=== PATIENT | female | born 1995 | race Caucasian/White ===

== ENCOUNTER 2017-06-15 11:21 | Emergency (ER) | payer MEDICAID, OTHER ==
[~2017-06-15] VITALS: Ht 160 cm; Wt 60.2 kg
[~2017-06-15 11:21] MED LIST: ALBUAER3 INH; PREN1CAP7 PO
[2017-06-15 11:31] VITALS: BP 112/67; PULSE 95; RESP 16; TEMP 98.5; O2SAT 100
[2017-06-15] MEDS ORDERED: ACETAMINOPHEN 325 MG TAB PO ONE (12:30)
--- NOTE | 2017-06-15 12:32 | PD ---
HPI Chief Complaint: Headache Time Seen by Provider: 12:19 Travel History International Travel<30 days: No Contact w/Intl Traveler<30days: No Traveled to known affect area: No History of Present Illness HPI This 21-year-old female says she's had congestion and some headache for a couple of days. She is currently . She had 1 previous and had a miscarriage about 2 years ago. She is currently 18 weeks. She's had some congestion in her chest for a couple of days he been short of breath. She has not been vomiting. Mother did have a cerebral aneurysm at the age of 35. [facility] Past Medical History Asthma: Yes Immunizations Current: Yes ?: : 1 Past Surgical History Ear Surgery: Yes (tubes) Social History Alcohol Use: No Tobacco Use: No Substance Use: No Allergies-Medications (Allergen,Severity, Reaction): Coded Allergies: No Known Allergies (Unverified Adverse Reaction, Unknown, 06/15/17) Reported Meds & Prescriptions Reported Meds & Active Scripts Active Citranatal [place] ( W/O Vit A W/ Fe Fumar) 27-1-260 Mg Cap 1 Cap PO DAILY Proair Hfa 8.5 GM Inh (Albuterol Sulfate) 90 Mcg/Act Aer 2 Puff INH Q4-6H PRN 108 mcg/actuation Review of Systems General / Constitutional: No: Fever, Chills Eyes: No: Diploplia, Drainage HENT: Positive: Sore Throat, Rhinitis, Earache Cardiovascular: No: Chest Pain or Discomfort, Palpitations Respiratory: Positive: Cough Gastrointestinal: No: Nausea, Vomiting Genitourinary: No: Vaginal Bleeding Skin: No Rash, No Itching Neurologic: Positive: Weakness Endocrine: No: Heat Intolerance, Cold Intolerance Hematologic/Lymphatic: No: Easy Bruising Physical Exam Narrative GENERAL: Well-developed female SKIN: Focused skin assessment warm/dry. HEAD: Atraumatic. Normocephalic. EYES: Pupils equal and round. No scleral icterus. No injection or drainage. ENT: There is nasal discharge. Mucous membranes pink and moist. NECK: Trachea midline. No JVD. CARDIOVASCULAR: Regular rate and rhythm. No murmur appreciated. RESPIRATORY: No accessory muscle use. Clear to auscultation. Breath sounds equal bilaterally. GASTROINTESTINAL: Abdomen soft, non-tender, nondistended. Hepatic and splenic margins not palpable. MUSCULOSKELETAL: No obvious deformities. No clubbing. No cyanosis. No edema. NEUROLOGICAL: Awake and alert. No obvious cranial nerve deficits. Motor grossly within normal limits. Normal speech. PSYCHIATRIC: Appropriate mood and affect; insight and judgment normal. Data Data Last Documented VS Vital Signs Date Time Temp Pulse Resp B/P (MAP) Pulse Ox O2 Delivery O2 Flow Rate FiO2 06/15/17 12:35 Room Air 06/15/17 11:31 98.5 95 16 112/67 (82) 100 Orders Orders Influenzae A/B Antigen (06/15/17 12:29) Acetaminophen (Tylenol) (06/15/17 12:30) MDM Medical Decision Making Medical Screen Exam Complete: Yes Emergency Medical Condition: Yes Medical Record Reviewed: Yes Differential Diagnosis Differential includes influenza, upper respiratory infection, sinus headache, Narrative Course Tests for influenza is negative. I will recommend the patient that she use Tylenol for headaches. Follow-up with Her own medical doctor Diagnosis Primary Impression: Upper respiratory infection Additional Instructions: Take Tylenol for headache Disposition: 01 DISCHARGE HOME Condition: Stable Casper Euceda MD Jun 15, 2017 12:31
[2017-06-15 13:15] VITALS: BP 108/64
== END 2017-06-15 13:21 | disposition home or self-care (01) ==
LOC: PHED 11:21
DX: O99.512 Diseases of the respiratory system complicating pregnancy, second trimester (principal); J06.9 Acute upper respiratory infection, unspecified; J45.909 Unspecified asthma, uncomplicated; Z3A.18 18 weeks gestation of pregnancy
CPT/HCPCS: 87804; 99283

== ENCOUNTER 2017-09-07 09:40 | Emergency (ER) | payer MEDICAID ==
[2017-09-07] MEDS ORDERED: ONDANSETRON ODT 4 MG TAB PO ONE (10:45)
[2017-09-07] MEDS ORDERED: ZOFR4TAB PO (10:46)
--- NOTE | 2017-09-07 10:47 | PD ---
HPI Travel History International Travel<30 Days: No Contact w/Intl Traveler<30Days: No History of Present Illness HPI 21-year-old female at 30/2 weeks presents to the ED with complaints of nausea/vomiting and cramps. She reports that she had 4 episodes of nonbloody, nonbilious vomiting and 2 episodes of loose stool. She states that she started having cramps in her lower abdomen during the middle of the night, which continue to the morning. She reports them as sporadic. She also endorses slight, thick, white vaginal discharge. She denies foul-smelling odor, dysuria , history of STDs. She states that her vaginal discharge was sampled at [facility] last Thursday, but she has not heard of the results. She denies vaginal bleeding, leakage of fluid, chest pain, shortness of breath. She endorses good movements. History Past Medical History Narrative Medical Asthma Obstetric History Obstetric History [id number] 1 miscarriage at 13 weeks Past Surgical History Surgical History: No Previous Surgery Family History Narrative Family History Mom had epilepsy and brain aneurysm at 35 COPD Social History Alcohol Use: No Tobacco Use: No Substance Abuse: No Allergies-Medications (Allergen,Severity, Reaction): Coded Allergies: No Known Allergies (Unverified Adverse Reaction, Unknown, 06/15/17) Home Meds Active Scripts Ondansetron (Zofran) 4 Mg Tab, 4 MG PO Q6HR Y for NAUSEA OR VOMITING, #30 TAB 0 Refills Prov:Mavis Judge MD 09/07/17 W/O Vit A W/ Fe Fumar (Citranatal [place]) 27-1-260 Mg Cap, 1 CAP PO DAILY for Nutritional Supplement, #30 CAP 3 Refills Prov:Sandrita Cuello CNM [employer] SUPER[employer]OR 05/07/17 Albuterol 8.5 GM Inh (Proair Hfa 8.5 GM Inh) 90 Mcg/Act Aer, 2 PUFF INH Q4-6H Y for SHORTNESS OF BREATH, #1 INHALER 1 Refill 108 mcg/actuation Prov:Sandrita Cuello CNM [employer] SO[employer] SERVICE SUPERVISOR 05/07/17 Review of Systems Except as stated in HPI: all other systems reviewed are Neg Physical Exam Narrative GENERAL: Well-nourished, well-developed patient. SKIN: Warm and dry. HEAD: Normocephalic and atraumatic. EYES: No scleral icterus. No injection or drainage. ENT: No nasal drainage noted. Mucous membranes pink. Airway patent. NECK: Supple, trachea midline. No JVD. CARDIOVASCULAR: Regular rate and rhythm without murmurs, gallops, or rubs. RESPIRATORY: Breath sounds equal bilaterally. No accessory muscle use. ABDOMEN/GI: Abdomen soft, non-tender, bowel sounds present, no rebound, no guarding GENITOURINARY: External Genitalia: intact and normal in appearance Cervix: Closed Dilatation: [-] Effacement: [-] Station: [-] Presentation: Posterior Membranes: Intact Uterine Contractions: Slight irritability on monitor FHT's: Category: 1 Baseline: 140 Reactive: Yes Variability: Moderate Decels: None EXTREMITIES: No cyanosis or edema. BACK: Nontender without obvious deformity. NEUROLOGICAL: Awake and alert. Motor and sensory grossly within normal limits. Five out of 5 muscle strength in all muscle groups. Normal speech. Data Data Vital Signs Reviewed: Yes Orders Orders Vital Signs (Adult) .ON ADMISSION (09/07/17 10:28) ^ Labor Status (09/07/17 10:28) ^ Non Stress Test (09/07/17 10:28) ^ Hydration (09/07/17 10:28) Ondansetron Odt (Zofran Odt) (09/07/17 10:45) MDM Plan 21-year-old female at 30/2 weeks presents to the ED for nausea and vomiting. #1 intrauterine Category 1 tracing reassuring #2 nausea and vomiting Slight irregular contractions seen on monitoring Most likely due to dehydration Urine dipstick negative Zofran given Oral rehydration Continue to follow up with NUCLEAR LICENSING ENGINEER for care Diagnosis Diagnosis: Primary Impression: Qualified Codes: Z3A.30 - 30 weeks gestation of Additional Impression: Nausea and vomiting during Disposition: DISCHARGE HOME Condition: Stable Scripts Ondansetron (Zofran) 4 Mg Tab 4 MG PO Q6HR Y for NAUSEA OR VOMITING, #30 TAB 0 Refills Prov: Mavis Judge MD R1 09/07/17 Patient Instructions: Nausea and Vomiting in (ED) Mavis Judge MD R1 Sep 07, 2017 10:47
== END 2017-09-07 11:30 | disposition home or self-care (01) ==
LOC: HOBED 09:40
DX: O21.9 Vomiting of pregnancy, unspecified (principal); O26.893 Other specified pregnancy related conditions, third trimester; R19.7 Diarrhea, unspecified; R10.30 Lower abdominal pain, unspecified; Z3A.30 30 weeks gestation of pregnancy
CPT/HCPCS: 99283

== ENCOUNTER 2017-11-02 12:00 | Emergency (ER) | payer MEDICAID ==
[~2017-11-02 12:00] MED LIST changes: +ZOFR4TAB PO
--- NOTE | 2017-11-02 12:45 | PD ---
HPI Chief Complaint Contractions Date Seen: Nov 02, 2017 Travel History International Travel<30 Days: No Contact w/Intl Traveler<30Days: No Known Affected Area: No History of Present Illness HPI Patient is a 21-year-old 010 at 38/2 weeks gestation, CLAUDIO of 11/14/2017 presents to the [facility] ED with multiple chief complaints including contractions, dizziness, hot flashes, pounding headache, and vaginal discharge. First, patient states that she has been having irregular contractions that an hour apart but never 10 minutes or less apart. She feels the contractions in her lower abdomen. Next, patient states that she is being having thick, non- foul-smelling, mucus-like discharge for the past 2 weeks but increased in amount in the last 2 days. She has been feeling pressure between her legs and has had some back pain. She has also been experiencing a pounding headache. Her blood pressure has been great throughout the and all her labs have been normal including her glucose tolerance screen. Notably, she is GBS negative. Patient denies fever, chills, vomiting, diarrhea, chest pain, shortness of breath, dysuria, vaginal itching, gush/leakage of fluid. She has had some blurry vision but no spots. She endorses positive movements. She has had some nausea on and off. Her last sexual intercourse was 1 week ago. Weeks Gestation: 38 Para: 2 Miscarriage: 1 Allergies-Medications (Allergen,Severity, Reaction): Coded Allergies: No Known Allergies (Unverified Adverse Reaction, Unknown, 06/15/17) Home Meds Active Scripts Ondansetron (Zofran) 4 Mg Tab, 4 MG PO Q6HR Y for NAUSEA OR VOMITING, #30 TAB 0 Refills Prov:Mavis Judge MD R1 09/07/17 W/O Vit A W/ Fe Fumar (Citranatal [place]) 27-1-260 Mg Cap, 1 CAP PO DAILY for Nutritional Supplement, #30 CAP 3 Refills Prov:Sandrita Cuello CNM ONCOLOGY TECHNICIAN 05/07/17 Albuterol 8.5 GM Inh (Proair Hfa 8.5 GM Inh) 90 Mcg/Act Aer, 2 PUFF INH Q4-6H Y for SHORTNESS OF BREATH, #1 INHALER 1 Refill 108 mcg/actuation Prov:Sandrita CuelloGarima LAND ONCOLOGY TECHNICIAN 05/07/17 Review of Systems Except as stated in HPI: all other systems reviewed are Neg General / Constitutional: No: Fever, Chills Eyes: Blurred Vision Cardiovascular: No: Chest Pain or Discomfort Gastrointestinal: Nausea Genitourinary: No: Dysuria, Vaginal Bleeding Skin: No Itching Physical Exam Narrative GENERAL: Well-nourished, well-developed patient. SKIN: Warm and dry. HEAD: Normocephalic and atraumatic. EYES: No scleral icterus. No injection or drainage. ENT: No nasal drainage noted. Mucous membranes pink. Airway patent. NECK: Supple, trachea midline. No JVD. CARDIOVASCULAR: Regular rate and rhythm without murmurs, gallops, or rubs. RESPIRATORY: Breath sounds equal bilaterally. No accessory muscle use. ABDOMEN/GI: Abdomen soft, non-tender, bowel sounds present, no rebound, no guarding Gravid to 38 weeks size GENITOURINARY: External Genitalia: intact and normal in appearance Cervix: Midposition Dilatation: 1-2 cm Effacement: 50% Station: -3 Presentation: cephalic Membranes: ruptured Uterine Contractions: present but irregular FHT's: Category: I Baseline: 140 Reactive: accels present Variability: moderate Decels: none EXTREMITIES: No cyanosis or edema. BACK: Nontender without obvious deformity. No CVA tenderness. NEUROLOGICAL: Awake and alert. Motor and sensory grossly within normal limits. Five out of 5 muscle strength in all muscle groups. Normal speech. Data Data Vital Signs Reviewed: Yes Orders Orders Vital Signs (Adult) .ON ADMISSION (11/02/17 12:16) ^ Labor Status (11/02/17 12:16) ^ Non Stress Test (11/02/17 12:16) ^ Hydration (11/02/17 12:16) Urinalysis - C+S If Indicated (11/02/17 12:24) Group B Strep: Negative MDM Medical Record Reviewed: Yes Interpretation(s) 21 y/o presents with Sánchez Schuster contractions Plan 1. IUP -Full-term at 38 weeks -FHT category I - reassuring -GBS negative -Continue routine care 2. False labor -Vaginal exam 1-2/50%/-3 -Contractions seen on tocometer but irregular -Advise adequate hydration -Tylenol for pain Patient stable. BP wnl. Will discharge home. Labor precautions. Expect a vaginal delivery soon. AMOS Fierro Diagnosis Diagnosis: Primary Impression: False labor after 37 weeks of gestation without delivery Additional Impression: Sánchez Schuster' contraction Disposition: 01 DISCHARGE HOME Condition: Stable Eko,Angelica MARQUEZ R2 Nov 02, 2017 12:45
== END 2017-11-02 13:01 | disposition home or self-care (01) ==
LOC: HOBED 12:00
DX: O47.1 False labor at or after 37 completed weeks of gestation (principal); O26.893 Other specified pregnancy related conditions, third trimester; R51 Headache; H53.8 Other visual disturbances; R11.0 Nausea; Z3A.38 38 weeks gestation of pregnancy
CPT/HCPCS: 99284

== ENCOUNTER 2017-11-10 05:07 | Inpatient (IN) | payer MEDICAID ==
[2017-11-10] VITALS (108 sets, daily range): BP systolic 101–143; BP diastolic 48–85; PULSE 61–127; RESP 17–19; TEMP 97.6–99.2
[2017-11-10] MEDS ORDERED: LACTATED RINGER'S 1000 ML INJ 1,000 ML IV PRN (06:08)
--- NOTE | 2017-11-10 06:08 | HHI.HP ---
HPI Chief Complaint Contractions Date Seen: Nov 10, 2017 Time Seen: 06:05 Travel History International Travel<30 Days: No Contact w/Intl Traveler<30Days: No Known Affected Area: No History of Present Illness HPI 21-year-old white female A1 at 39--40 weeks presents complaining of contractions that are painful, she is leaking some fluid per vagina amnisure is negative, no bleeding noted, heart rate tracing is reactive she is kari every 3 minutes approximately Weeks Gestation: 39 Para: 0 : 2 Miscarriage: 1 History Obstetric History Obstetric History 1 early loss Social History Alcohol Use: No Tobacco Use: No Substance Abuse: No Allergies-Medications (Allergen,Severity, Reaction): Coded Allergies: No Known Allergies (Unverified Adverse Reaction, Unknown, 06/15/17) Home Meds Active Scripts Ondansetron (Zofran) 4 Mg Tab, 4 MG PO Q6HR Y for NAUSEA OR VOMITING, #30 TAB 0 Refills Prov:Mavis Judge MD 09/07/17 W/O Vit A W/ Fe Fumar (Citranatal [place]) 27-1-260 Mg Cap, 1 CAP PO DAILY for Nutritional Supplement, #30 CAP 3 Refills Prov:Sandrita Culelo CNM [facility] 05/07/17 Albuterol 8.5 GM Inh (Proair Hfa 8.5 GM Inh) 90 Mcg/Act Aer, 2 PUFF INH Q4-6H Y for SHORTNESS OF BREATH, #1 INHALER 1 Refill 108 mcg/actuation Prov:Sandrita Cuello CNM [facility] 05/07/17 Review of Systems General / Constitutional: No: Fever, Weight Gain, Chills, Other Eyes: No: Diploplia, Blurred Vision, Visual changes, Pain, Photophobia HENT: No: Headaches, Vertigo, Lightheadedness Cardiovascular: No: Irregular Rhythm, Chest Pain or Discomfort, Palpitations, Tachycardia, Syncope, Varicosities, Edema, Cyanosis Respiratory: No: Cough, Short of Breath, Other Gastrointestinal: Abdominal Pain, No: Nausea, Vomiting, Diarrhea Genitourinary: No: Decreased Urinary Output, Oliguria Musculoskeletal: No: Limited ROM, Weakness, Cramping, Edema, Pain Skin: No Rash, No Itching, No Dryness, No Lumps, No Change in Pigmentation, No Change in Nails, No Alopecia, No Lesions Neurologic: No: Weakness, Dizziness, Syncope, Focal Abnormalities, Coordination Problem, Headache, Slurred Speech, Seizures Psychiatric: No: Depression, Suicidal Ideations, Homicidal Ideation Endocrine: No: Heat Intolerance, Cold Intolerance, Polydipsia, Polyuria, Other Physical Exam Narrative GENERAL: Well-nourished, well-developed patient. SKIN: Warm and dry. HEAD: Normocephalic and atraumatic. EYES: No scleral icterus. No injection or drainage. ENT: No nasal drainage noted. Mucous membranes pink. Airway patent. NECK: Supple, trachea midline. No JVD. CARDIOVASCULAR: Regular rate and rhythm without murmurs, gallops, or rubs. RESPIRATORY: Breath sounds equal bilaterally. No accessory muscle use. BREASTS: Bilateral exam showed no masses , no retractions, no nipple discharge. ABDOMEN/GI: Abdomen soft, non-tender, bowel sounds present, no rebound, no guarding Gravid to [39-] weeks size Fundal Height: [-39] GENITOURINARY: External Genitalia: intact and normal in appearance BUS glands: [-] Cervix: [mid-] Dilatation: [-3] Effacement: [90-] Station: [0-] Presentation: [-vtx] Membranes: [intact ] Uterine Contractions: [q 3 min-] FHT's: Category: [-1] Baseline: [-133] Reactive: [R-] Variability: [mod-] Decels: [0-] EXTREMITIES: No cyanosis or edema. BACK: Nontender without obvious deformity. No CVA tenderness. NEUROLOGICAL: Awake and alert. Motor and sensory grossly within normal limits. Five out of 5 muscle strength in all muscle groups. Normal speech. Caprini VTE Risk Assessment Caprini VTE Risk Assessment: No/Low Risk (score <= 1) Caprini Risk Assessment Model Point Value = 1 Point Value = 2 Point Value = 3 Point Value = 5 Age 41-60 Minor surgery BMI > 25 kg/m2 Swollen legs Varicose veins or History of unexplained or recurrent spontaneous Oral contraceptives or hormone replacement Sepsis (< 1 month) Serious lung disease, including pneumonia (< 1 month) Abnormal pulmonary function Acute myocardial infarction Congestive heart failure (< 1 month) History of inflammatory bowel disease Medical patient at bed rest Age 61-74 Arthroscopic surgery Major open surgery (> 45 min) Laparoscopic surgery (> 45 min) Malignancy Confined to bed (> 72 hours) Immobilizing plaster cast Central venous access Age >= 75 History of VTE Family history of VTE Factor V Leiden Prothrombin [id number] Lupus anticoagulant Anticardiolipin antibodies Elevated serum homocysteine Heparin-induced thrombocytopenia Other congenital or acquired thrombophilia Stroke (< 1 month) Elective arthroplasty Hip, pelvis, or leg fracture Acute spinal cord injury (< 1 month) Prophylaxis Regimen Total Risk Factor Score Risk Level Prophylaxis Regimen 0-1 Low Early ambulation 2 Moderate Order ONE of the following: *Sequential Compression Device (SCD) *Heparin 5000 units SQ BID 3-4 Higher Order ONE of the following medications: *Heparin 5000 units SQ TID *Enoxaparin/Lovenox 40 mg SQ daily (WT < 150 kg, CrCl > 30 mL/min) *Enoxaparin/Lovenox 30 mg SQ daily (WT < 150 kg, CrCl > 10-29 mL/min) *Enoxaparin/Lovenox 30 mg SQ BID (WT < 150 kg, CrCl > 30 mL/min) AND/OR *Sequential Compression Device (SCD) 5 or more Highest Order ONE of the following medications: *Heparin 5000 units SQ TID (Preferred with Epidurals) *Enoxaparin/Lovenox 40 mg SQ daily (WT < 150 kg, CrCl > 30 mL/min) *Enoxaparin/Lovenox 30 mg SQ daily (WT < 150 kg, CrCl > 10-29 mL/min) *Enoxaparin/Lovenox 30 mg SQ BID (WT < 150 kg, CrCl > 30 mL/min) AND *Sequential Compression Device (SCD) Data Data Group B Strep: Negative Assessment/Plan Assessment and Plan Impression--39 week intrauterine in early labor, cervix is 3/90/0 station, contractions are regular NST is reactive Plan--admit to labor and delivery, augment labor as needed, monitor closely, anticipate vaginal delivery Yogn Randall II, MD Nov 10, 2017 06:08
[2017-11-10] MEDS ORDERED: LIDOCAINE HCL 1% 50 ML VIAL INFIL PRN (06:15)
[2017-11-10] MEDS ORDERED: OXYTOCIN 30 UNITS-500ML PREMIX 500 ML IV ONE (06:15)
[2017-11-10] MEDS ORDERED: MINERAL OIL 10 ML VIAL TOPICAL PRN (06:15)
[2017-11-10] MEDS ORDERED: CITRIC ACID-SODIUM CITRATE LIQ 30 ML UDC PO SCH (06:15)
[2017-11-10] MEDS ORDERED: SODIUM CHLORID 0.9% 500 ML INJ 500 ML IV PRN (06:15)
[2017-11-10] MEDS ORDERED: LIDOCAINE HCL 1% 50 ML VIAL I-DERMAL PRN (06:15)
[2017-11-10] MEDS ORDERED: SODIUM CHLOR 0.9% 1000 ML INJ 1,000 ML IV PRN (06:28)
[2017-11-10 06:48] LABS: AUTOMATED NEUTROPHIL # 5.7 TH/MM3 (1.8-7.7); BASOPHIL % 0.2 % (0.0-2.0); EOSINOPHIL # 0.1 TH/MM3 (0-0.4); EOSINOPHIL % 1.1 % (0.0-4.0); HEMATOCRIT 31.9 % (35.0-46.0); HEMOGLOBIN 11.2 GM/DL (11.6-15.3); LYMPH % 23.8 % (9.0-44.0); MEAN CELL VOLUME 90.7 FL (80.0-100.0); MEAN CORPUSCULAR HEMOGLOBIN 31.8 PG (27.0-34.0); MEAN PLATELET VOLUME 9.8 FL (7.0-11.0); MONO % 7.8 % (0.0-8.0); MONOCYTE # 0.7 TH/MM3 (0-0.9); NEUT % 67.1 % (16.0-70.0); PLATELET COUNT 156 TH/MM3 (150-450); RED BLOOD COUNT 3.52 MIL/MM3 (4.00-5.30); RED CELL DISTRIBUTION WIDTH 12.7 % (11.6-17.2); WHITE BLOOD COUNT 8.5 TH/MM3 (4.0-11.0)
[2017-11-10 06:55] LABS: BILIRUBIN, URINE NEG (NEG); BLOOD, URINE NEG (NEG); GLUCOSE,URINE NEG (NEG); KETONE, URINE TRACE mg/dL (NEG); NITRITE,URINE NEG (NEG); SQUAMOUS EPITHELIAL CELL URINE 8 /hpf (0-5); URINE COLOR YELLOW (YELLW/STRAW); URINE LEUKOCYTE ESTERASE SMALL (NEG)
[2017-11-10] MEDS: LACTATED RINGER'S 1000 ML INJ 1,000 ML IV SCH ×2 (07:18→11:00)
[2017-11-10] MEDS ORDERED: fentaNYL 2MCG-BUPIV 0.125% INJ 150 ML EPIDURAL ONE (07:22)
[2017-11-10] MEDS ORDERED: ePHEDrine/NS 25 MG/5 ML SYRINGE ONE ×2 (07:22→09:54)
[2017-11-10] MEDS ORDERED: ePHEDrine/NS 25 MG/5 ML SYRINGE IV PUSH PRN (14:45)
[2017-11-10] MEDS ORDERED: NO SYSTEM NARCOTICS PRN (14:45)
[2017-11-10] MEDS ORDERED: DO NOT ADMINISTER ANTICOAGULANTS PRN (14:45)
[2017-11-10] MEDS ORDERED: fentaNYL 2MCG-BUPIV 0.125% 150 ML EPIDURAL PRN (14:45)
[2017-11-10] MEDS ORDERED: LIDOCAINE HCL 1% PF 30 ML VIAL ONE (14:57)
--- NOTE | 2017-11-10 15:23 | PD.OB.DELI ---
Weeks gestation: 39 Anesthesia: Epidural Episiotomy: None Vaginal Delivery: Normal Presentation: Occiput anterior Nuchal Cord: None Delayed cord clamping (45 sec): Yes : Male Delivery date: Nov 10, 2017 Delivery time: 14:43 One Minute : 8 Five Minute : 9 Weight: 3780 g Placenta: Spontaneous delivery, Intact, 3 vessel cord Laceration: Vaginal laceration, 2 deg Repair: Chromic interrupted Estimated blood loss: 300 mL Additional Information Head delivered by maternal effort. No complications with the anterior shoulder. Placenta delivered without complications. 2nd degree perineal laceration repaired with running 2.0 chromic suture. Local lidocaine administered. Small right labial laceration repaired with running 2.0 chromic suture. (Liban Scott MD R1) Additional Information MD present for delivery and supervised repair of lacerations. (Aurea Wilson MD) Liban Scott MD R1 Nov 10, 2017 15:23 Aurea Wilson MD Nov 10, 2017 18:35
[2017-11-10] MEDS ORDERED: BENZOCAINE 20% TOPICAL SPRAY 60 ML CAN TOPICAL PRN (15:30)
[2017-11-10] MEDS ORDERED: ALUMINUM/MAGNESIUM/SIMETH 30 ML CUP PO PRN (15:30)
[2017-11-10] MEDS ORDERED: SODIUM CHLORIDE 0.9% FLUSH 10 ML FLUSH IV FLUSH PRN (15:30)
[2017-11-10] MEDS ORDERED: WITCH HAZEL 50%/GLYCERIN 12.5% 40 PAD JAR TOPICAL PRN (15:30)
[2017-11-10] MEDS ORDERED: ONDANSETRON ODT 4 MG TAB PO PRN (15:30)
[2017-11-10] MEDS ORDERED: oxyCODONE/ACETAMINOPHEN 5 MG/325 MG TAB PO PRN (15:30)
[2017-11-10] MEDS ORDERED: OXYTOCIN 30 UNITS-500ML PREMIX 500 ML IV SCH (15:30)
[2017-11-10] MEDS ORDERED: DIPHTH/TETANUS/ACEL PERTUSSIS (BOOSTER) 0.5 ML VIAL/PFS IM ONE (16:00)
[2017-11-10] MEDS ORDERED: MEASLES, MUMPS, RUBELLA VACCINE 0.5 ML VIAL SQ ONE (16:00)
[2017-11-10] MEDS: ACETAMINOPHEN 325 MG TAB PO PRN ×2 (16:04→19:48)
[2017-11-10] MEDS: DOCUSATE SODIUM 50 MG/SENNA 8.6 MG TAB PO PRN (19:48)
[2017-11-10] MEDS: IBUPROFEN 800 MG TAB PO PRN (19:48)
[2017-11-10] MEDS ORDERED: ZOLPIDEM TARTRATE 5 MG TAB PO PRN (21:00)
[2017-11-11] MEDS: ACETAMINOPHEN 325 MG TAB PO PRN (03:43)
[2017-11-11] MEDS: IBUPROFEN 800 MG TAB PO PRN ×3 (03:43→19:35)
--- NOTE | 2017-11-11 08:07 | HHI.OB ---
Subjective Remarks Patient is a 21-year-old delivered at 39 weeks and 3 days. Patient is day 1 after . Patient's pain is well-controlled. Patient reports eating and drinking without any nausea or vomiting. Patient reports minimal bleeding. Patient has passed gas but no bowel movements. Patient is walking without lower extremity pain or shortness of breath. Patient is unsure about contraception and plans on breast-feeding. (Liban Scott MD R1) Objective Vitals/I&O Vital Signs Date Time Temp Pulse Resp B/P (MAP) Pulse Ox O2 Delivery O2 Flow Rate FiO2 11/10/17 23:20 98.4 11/10/17 22:26 99.1 76 18 110/53 (72) 11/10/17 20:55 98.8 11/10/17 20:55 18 11/10/17 20:55 18 11/10/17 17:45 98.4 18 11/10/17 17:45 76 113/59 (77) 11/10/17 16:45 76 111/60 (77) 11/10/17 16:35 18 11/10/17 16:30 73 118/64 (82) 11/10/17 16:15 88 118/81 (93) 11/10/17 16:03 17 11/10/17 16:00 83 117/71 (86) 11/10/17 15:46 88 116/65 (82) 11/10/17 15:35 98.3 11/10/17 15:35 18 11/10/17 15:30 89 121/61 (81) 11/10/17 15:25 17 11/10/17 15:19 101 122/48 (72) 11/10/17 15:00 18 11/10/17 14:45 18 11/10/17 14:40 116 11/10/17 14:35 122 11/10/17 14:35 127 11/10/17 14:31 104 134/64 (87) 11/10/17 14:30 106 11/10/17 14:25 114 11/10/17 14:25 111 11/10/17 14:21 99.2 11/10/17 14:20 96 11/10/17 14:20 103 11/10/17 14:15 88 11/10/17 14:15 99 11/10/17 14:15 94 123/82 (96) 11/10/17 14:10 95 11/10/17 14:10 91 11/10/17 14:05 87 11/10/17 14:05 82 11/10/17 14:02 86 121/72 (88) 11/10/17 14:00 99 11/10/17 14:00 99 11/10/17 13:55 97 11/10/17 13:55 95 11/10/17 13:50 94 11/10/17 13:46 127 131/71 (91) 11/10/17 13:45 88 11/10/17 13:30 86 11/10/17 13:30 102 11/10/17 13:30 86 143/79 (100) 11/10/17 13:27 18 11/10/17 13:25 81 11/10/17 13:25 82 11/10/17 13:20 81 11/10/17 13:20 78 11/10/17 13:15 91 11/10/17 13:15 102 11/10/17 13:15 107 118/65 (82) 11/10/17 13:10 79 11/10/17 13:10 78 11/10/17 13:05 79 11/10/17 13:05 79 11/10/17 13:00 77 11/10/17 13:00 80 11/10/17 13:00 85 117/59 (78) 11/10/17 12:45 79 11/10/17 12:45 78 123/81 (95) 11/10/17 12:40 80 11/10/17 12:40 80 11/10/17 12:35 70 11/10/17 12:35 77 11/10/17 12:30 76 11/10/17 12:30 71 11/10/17 12:30 77 122/81 (95) 11/10/17 12:25 73 11/10/17 12:25 74 11/10/17 12:20 75 11/10/17 12:20 74 11/10/17 12:15 74 134/82 (99) 11/10/17 12:15 76 11/10/17 12:15 71 11/10/17 12:00 68 11/10/17 12:00 70 128/84 (99) 11/10/17 12:00 18 6/26/18 12:00 73 11/10/17 12:00 18 11/10/17 11:55 71 11/10/17 11:55 74 11/10/17 11:50 66 11/10/17 11:50 68 11/10/17 11:46 71 128/71 (90) 11/10/17 11:45 63 11/10/17 11:45 98.1 61 17 11/10/17 11:40 68 11/10/17 11:40 78 11/10/17 11:35 75 11/10/17 11:35 74 11/10/17 11:30 76 11/10/17 11:30 76 105/49 (67) 11/10/17 11:30 76 11/10/17 11:25 74 11/10/17 11:25 75 11/10/17 11:20 74 11/10/17 11:20 75 11/10/17 11:15 73 11/10/17 11:15 74 103/65 (78) 11/10/17 11:15 75 11/10/17 11:10 75 11/10/17 11:10 76 11/10/17 11:05 70 11/10/17 11:05 69 11/10/17 11:01 72 101/53 (69) 11/10/17 11:00 76 11/10/17 11:00 74 11/10/17 10:45 72 11/10/17 10:45 61 11/10/17 10:45 69 101/67 (78) 11/10/17 10:40 71 11/10/17 10:40 73 11/10/17 10:35 78 11/10/17 10:35 79 11/10/17 10:30 77 11/10/17 10:30 76 11/10/17 10:30 76 111/73 (86) 11/10/17 10:20 73 11/10/17 10:20 73 11/10/17 10:15 70 11/10/17 10:15 74 120/71 (87) 11/10/17 10:15 72 11/10/17 10:10 71 11/10/17 10:10 72 11/10/17 10:05 81 11/10/17 10:05 81 11/10/17 10:00 78 107/64 (78) 11/10/17 10:00 78 11/10/17 10:00 80 11/10/17 09:55 81 11/10/17 09:55 81 11/10/17 09:50 75 11/10/17 09:50 76 11/10/17 09:45 72 11/10/17 09:45 76 11/10/17 09:45 73 111/58 (75) 11/10/17 09:35 74 11/10/17 09:35 76 11/10/17 09:30 72 11/10/17 09:30 68 11/10/17 09:30 74 118/60 (79) 11/10/17 09:25 72 11/10/17 09:25 74 11/10/17 09:20 76 11/10/17 09:20 76 11/10/17 09:15 71 125/70 (88) 11/10/17 09:15 72 11/10/17 09:15 63 11/10/17 09:10 76 11/10/17 09:10 74 11/10/17 09:05 75 11/10/17 09:05 79 11/10/17 09:00 77 11/10/17 09:00 70 11/10/17 09:00 71 121/67 (85) 11/10/17 08:50 69 11/10/17 08:50 69 11/10/17 08:45 74 11/10/17 08:45 73 123/78 (93) 11/10/17 08:45 71 11/10/17 08:40 73 11/10/17 08:40 73 11/10/17 08:35 79 11/10/17 08:35 81 11/10/17 08:30 67 124/72 (89) 11/10/17 08:30 67 11/10/17 08:30 66 11/10/17 08:20 75 11/10/17 08:20 82 11/10/17 08:15 69 11/10/17 08:15 70 130/78 (95) 11/10/17 08:15 73 11/10/17 08:10 74 11/10/17 08:10 73 Objective Remarks GENERAL: Well-nourished, well-developed patient. CARDIOVASCULAR: Regular rate and rhythm without murmurs, gallops, or rubs. RESPIRATORY: Breath sounds equal bilaterally. No accessory muscle use. ABDOMEN/GI: Abdomen soft, non-tender. Fundus: Firm, non-tender at umbilicus. GENITOURINARY: Light to moderate bleeding. EXTREMITIES: No cyanosis or edema, non-tender, without signs of DVT. Medications and IVs Current Medications Medications (Trade) Dose Ordered Sig/Bryon Route Start Time Stop Time Status Last Admin ([facility] Information) No systemic narcotics to be given except... UNSCH PRN .XX 11/10/17 14:45 11/11/17 14:44 ([facility] Nursing Information) DO NOT ADMINISTER ANY ANTICOAGUL... UNSCH PRN .XX 11/10/17 14:45 11/11/17 14:44 Fentanyl/ Bupivacaine/ Sodium Chlor 150 ml @ 12 mls/hr TITRATE PRN EPIDURAL 11/10/17 14:45 11/10/17 12:00 (ePHEDrine/NS 25 MG/5 ML SYR) 10 mg UNSCH PRN IV PUSH 11/10/17 14:45 11/11/17 14:44 (NS Flush) 2 ml BID IV FLUSH 11/10/17 21:00 (NS Flush) 2 ml UNSCH PRN IV FLUSH 11/10/17 15:30 (Tylenol) 650 mg Q4H PRN PO 11/10/17 15:30 11/11/17 03:43 (Motrin) 800 mg Q8H PRN PO 11/10/17 15:30 11/11/17 03:43 (Americaine 20% Top Spr) 1 spray Q4H PRN TOPICAL 11/10/17 15:30 11/10/17 19:48 (Tucks Pads) 1 applic QID PRN TOPICAL 11/10/17 15:30 11/10/17 19:48 (Clarissa-Colace) 2 tab Q12H PRN PO 11/10/17 15:30 11/10/17 19:48 (Ambien) 5 mg HS PRN PO 11/10/17 21:00 (Mag-Al Plus Susp Liq) 15 ml Q8H PRN PO 11/10/17 15:30 (Zofran Odt) 4 mg Q6H PRN PO 11/10/17 15:30 (Percocet 5-325 Mg) 1 tab Q4H PRN PO 11/10/17 15:30 (Percocet 5-325 Mg) 2 tab Q4H PRN PO 11/10/17 15:30 (Liban Scott MD R1) Assessment/Plan Assessment and Plan Patient is a 21-year-old delivered at 39 weeks and 3 days. Patient is day 1 after . Patient was counseled to do 6 weeks of pelvic rest. Patient was counseled to follow up in 6 weeks. Patient requested follow-up and contraception. --AF VSS --Continue routine care --Motrin and Percocet when necessary for pain --Encourage OOB --Pelvic rest for 6 weeks will need follow-up appointment at that time. --Contraception: Unsure at this time --Anticipate discharge tomorrow (Liban Scott MD R1) Attending Attestation agree with above (Aurea Wilson MD) Liban Scott MD R1 Nov 11, 2017 08:07 Auera Wilson MD Nov 11, 2017 08:52
[2017-11-11] MEDS: oxyCODONE/ACETAMINOPHEN 5 MG/325 MG TAB PO PRN ×3 (08:15→19:34)
[2017-11-11] MEDS: SODIUM CHLORIDE 0.9% FLUSH 10 ML FLUSH IV FLUSH SCH ×2 (09:00→21:00)
[2017-11-11] MEDS ORDERED: IBUP1TAB7 PO (09:32)
[2017-11-11] MEDS ORDERED: PERI PO (09:32)
--- NOTE | 2017-11-11 09:33 | HHI.DCPOC ---
Discharge Care Plan Diagnosis: (1) Vaginal delivery Report Symptoms to Your Doctor -Temperature above 100.5 degrees -Redness, of incision or excessive or foul smelling drainage -Unusual pain or calf pain -Increased vaginal bleeding -Painful or difficulty urinating -Feelings of extreme sadness or anxiety after 2 weeks Goals to Promote Your Health * To prevent worsening of your condition and complications * To maintain your health at the optimal level Directions to Meet Your Goals Take your medications as prescribed Follow your dietary instruction Follow activity as directed Ensure plenty of rest for recovery Drink fluids for hydration Keep your appointments as scheduled Take your immunizations and boosters as scheduled If your symptoms worsen call your PCP, if no PCP go to Urgent Care Center or Emergency Room Smoking is Dangerous to Your Health. Avoid second hand smoke Call the 24-hour crisis hotline for domestic abuse at Angelica Camacho MD R2 Nov 11, 2017 09:32
[2017-11-11] MEDS: DOCUSATE SODIUM 50 MG/SENNA 8.6 MG TAB PO PRN (12:06)
[2017-11-11 20:00] VITALS: BP 105/56; PULSE 68; RESP 18; TEMP 98.1; O2SAT 99
[2017-11-12] MEDS: IBUPROFEN 800 MG TAB PO PRN (05:02)
[2017-11-12] MEDS: oxyCODONE/ACETAMINOPHEN 5 MG/325 MG TAB PO PRN ×2 (05:03→10:21)
--- NOTE | 2017-11-12 07:52 | HHI.OB ---
Subjective Remarks Patient is a 21-year-old delivered at 39 weeks and 3 days. Patient is day 2 after . Patient's pain is well-controlled. Patient reports eating and drinking without any nausea or vomiting. Patient reports minimal bleeding. Patient has passed gas and bowel movements. Patient is walking without lower extremity pain or shortness of breath. Patient reports desire for contraception arranged as outpatient and plans on breast-feeding. Objective Vitals/I&O Vital Signs Date Time Temp Pulse Resp B/P (MAP) Pulse Ox O2 Delivery O2 Flow Rate FiO2 11/11/17 20:00 98.1 68 18 105/56 (72) 99 Objective Remarks GENERAL: Well-nourished, well-developed patient. CARDIOVASCULAR: Regular rate and rhythm without murmurs, gallops, or rubs. RESPIRATORY: Breath sounds equal bilaterally. No accessory muscle use. ABDOMEN/GI: Abdomen soft, non-tender. Fundus: Firm, non-tender at umbilicus. GENITOURINARY: Light to moderate bleeding. EXTREMITIES: No cyanosis or edema, non-tender, without signs of DVT. Medications and IVs Current Medications Medications (Trade) Dose Ordered Sig/Bryon Route Start Time Stop Time Status Last Admin Fentanyl/ Bupivacaine/ Sodium Chlor 150 ml @ 12 mls/hr TITRATE PRN EPIDURAL 11/10/17 14:45 11/10/17 12:00 (NS Flush) 2 ml BID IV FLUSH 11/10/17 21:00 (NS Flush) 2 ml UNSCH PRN IV FLUSH 11/10/17 15:30 (Tylenol) 650 mg Q4H PRN PO 11/10/17 15:30 11/11/17 03:43 (Motrin) 800 mg Q8H PRN PO 11/10/17 15:30 11/12/17 05:02 (Americaine 20% Top Spr) 1 spray Q4H PRN TOPICAL 11/10/17 15:30 11/10/17 19:48 (Tucks Pads) 1 applic QID PRN TOPICAL 11/10/17 15:30 11/10/17 19:48 (Clarissa-Colace) 2 tab Q12H PRN PO 11/10/17 15:30 11/11/17 12:06 (Ambien) 5 mg HS PRN PO 11/10/17 21:00 (Mag-Al Plus Susp Liq) 15 ml Q8H PRN PO 11/10/17 15:30 (Zofran Odt) 4 mg Q6H PRN PO 11/10/17 15:30 (Percocet 5-325 Mg) 1 tab Q4H PRN PO 11/10/17 15:30 11/12/17 05:03 (Percocet 5-325 Mg) 2 tab Q4H PRN PO 11/10/17 15:30 Assessment/Plan Assessment and Plan Patient is a 21-year-old delivered at 39 weeks and 3 days. Patient is day 2 after . Patient was counseled to do 6 weeks of pelvic rest. Patient was counseled to follow up in 6 weeks. Patient requested follow-up and contraception. --AF VSS --Continue routine care --Motrin and Tylenol when necessary for pain --Encourage OOB --Pelvic rest for 6 weeks will need follow-up appointment at that time. --Contraception: Will arrange as outpatient --Anticipate discharge today Liban Scott MD R1 Nov 12, 2017 07:52
== END 2017-11-12 12:42 | disposition home or self-care (01) | DRG 775 ==
LOC: HOBED 05:07 → H2EB 06:05 → H1EA 18:02
PROVIDERS: ADMIT Obstetrics & Gynecology Maternal & Fetal Medicine; ATTEND Obstetrics & Gynecology Maternal & Fetal Medicine
PROC: 10E0XZZ Delivery of Products of Conception, External Approach (ICD-10-PCS; principal; 2017-11-10)
PROC: 0KQM0ZZ Repair Perineum Muscle, Open Approach (ICD-10-PCS; 2017-11-10)
DX: O70.1 Second degree perineal laceration during delivery (principal); Z37.0 Single live birth; Z3A.39 39 weeks gestation of pregnancy
CPT/HCPCS: 59025; 80307; 81001; 84112; 85025; 86592; 86762; 86850; 86900; 86901; 87086; 90715; G0481; J2590; J3010; J7120